=== PATIENT | male | born 1945 ===

== ENCOUNTER 2023-06-26 11:34 | Inpatient (IN) | payer MEDICARE, BC ==
[~2023-06-26] VITALS: Ht 182.9 cm; Wt 88.5 kg
[2023-06-26] VITALS (8 sets, daily range): BP systolic 101–129; BP diastolic 60–97
[2023-06-26] MEDS ORDERED: ATOR80 PO (16:50)
[2023-06-26] MEDS ORDERED: ELIQUIS5 M2 PO (16:50)
[2023-06-26] MEDS ORDERED: CARV25 PO (16:51)
[2023-06-26] MEDS ORDERED: VITAMIN D32000 UNI1 PO (16:51)
[2023-06-26] MEDS ORDERED: CLOP75 PO (16:52)
[2023-06-26] MEDS ORDERED: DIGOX250 MCG PO (16:52)
[2023-06-26] MEDS ORDERED: GLIP10 PO (16:53)
[2023-06-26] MEDS ORDERED: GABA300 PO (16:53)
[2023-06-26 16:55] LABS: BASOPHILS ABSOLUTE AUTO 0.02 K/mm3 (0.00-0.23); BASOPHILS PERCENT AUTO 0 % (0-2); EOSINOPHILS ABSOLUTE AUTO 0.01 K/mm3 (0.00-0.68); EOSINOPHILS PERCENT AUTO 0 % (0-6); Hemoglobin 12.8 g/dL (13.5-17.5); IMMATURE GRAN ABSOLUTE AUTO 0.02 K/mm3 (0.00-0.10); IMMATURE GRAN PERCENT AUTO 0 % (0-1); LYMPHOCYTES ABSOLUTE AUTO 1.07 K/mm3 (0.84-5.20); LYMPHOCYTES PERCENT AUTO 17 % (21-46); MONOCYTES ABSOLUTE AUTO 1.27 K/mm3 (0.16-1.47); MONOCYTES PERCENT AUTO 20 % (4-13); Magnesium, Blood 2.4 mg/dL (1.6-2.4); Mean Corpuscular HGB 27.4 pg (26.0-34.0); Mean Corpuscular HGB Conc 31.2 g/dL (31.5-36.5); Mean Corpuscular Volume 88 fL (80-100); NEUTROPHILS ABSOLUTE AUTO 4.02 K/mm3 (1.96-9.15); NEUTROPHILS PERCENT AUTO 63 % (41-73); RDW Coefficient Variation 16.8 % (11.7-14.2); RDW Standard Deviation 53.2 fL (35.1-46.3); Red Blood Cell Count 4.67 M/mm3 (4.30-5.90); White Blood Cell Count 6.41 K/mm3 (4.00-11.30)
[2023-06-26] MEDS ORDERED: HYDR1TAB94 PO (16:55)
[2023-06-26] MEDS ORDERED: JARDIANCE10 MG PO (16:56)
[2023-06-26] MEDS ORDERED: INSULANI SC (16:57)
[2023-06-26] MEDS ORDERED: EUTHYROX125 MCG PO (16:58)
[2023-06-26] MEDS ORDERED: VICTOZA 3-0.6 MG/0.2 SC (16:59)
[2023-06-26] MEDS ORDERED: LOSA25 PO (17:00)
[2023-06-26] MEDS ORDERED: MAGNESIUM OXID500 MG PO (17:00)
[2023-06-26] MEDS ORDERED: METF500 PO (17:01)
[2023-06-26] MEDS ORDERED: CENTRUM SILVER1 EAC2 PO (17:01)
[2023-06-26 17:02] LABS: Albumin, Blood 3.2 g/dL (3.4-5.0); Albumin/Globulin Ratio 0.9 (0.8-1.8); Bilirubin, Total 0.4 mg/dL (0.1-1.0); Bun/Creatinine Ratio 12.2 (12.0-20.0); Calcium, Blood 8.2 mg/dL (8.5-10.1); Creatinine, Blood 1.23 mg/dL (0.60-1.20); Globulin, Blood 3.6 g/dL (2.2-4.0); Phosphorus, Blood 2.8 mg/dL (2.5-4.9); Potassium, Blood 4.4 mmol/L (3.5-5.5); Thyroid Stimulating Hormone 0.457 uIU/mL (0.360-4.800); Total Protein, Blood 6.8 g/dL (6.4-8.2)
[2023-06-26] MEDS ORDERED: NITR.4SL SL (17:02)
[2023-06-26] MEDS ORDERED: OMEP20ER PO (17:02)
[2023-06-26] MEDS ORDERED: TORS10 PO (17:04)
--- NOTE | 2023-06-26 18:30 | NUR ---
PT ARRIVED IN THE ROOM VIA GURNEY PT WAS TRANSFERRED VIA SLIDE SHEET. PT IS HERE FOR TACHY SYNDROME. PT HAS PACEMAKER/AICD RATE HAS BEEN ELEVATED UP TO 170'S WITH RUNS OF NON SUSTAINING VTACH PT MOSTLY NON SYMPTAMOTIC BUT HAS EPISODES OF LIGHTHEADEDNESS. SBP 110-120'S, SATS ABOVE 95% ON RA, AFEBRILE. PT ALERT AND ORIENTED X2-3, FORGETFUL, SOME CONFUSION, PT CAN ANSWER QUESTIONS, SLOW TO RESPOND. PT WAS PLACED ON A 1;1 SITTER PT STARTING TO PULL ON LINES AND TUBINGS. FAMILY AT THE BEDSIDE AT THIS TIME. DIET RESUMED PT REFUSED DINNER TRAY. DR DE JESUS IN THE AT THIS TIME TALKING TO FAMILY AND THE PT. PT STARTED ON PO METOPROLOL AND AMIODARONE, HRR NOW MOSLTY PACED 70-80'S TACHS UP TO 130'S-150'S OCCASIONALLY. PT IN BED RESTING COMFORTABLY, BED ALARM ON FOR SAFETY. CALL LIGHTS IN REACH WILL REPORT TO ONCOMING SHIFT
[2023-06-26 19:14] LABS: Digoxin (Lanoxin) 0.68 ug/mL (0.80-2.00)
[2023-06-27] VITALS (9 sets, daily range): BP systolic 96–126; BP diastolic 55–72
[2023-06-27 04:05] LABS: BASOPHILS ABSOLUTE AUTO 0.04 K/mm3 (0.00-0.23); BASOPHILS PERCENT AUTO 1 % (0-2); EOSINOPHILS ABSOLUTE AUTO 0.01 K/mm3 (0.00-0.68); EOSINOPHILS PERCENT AUTO 0 % (0-6); Hematocrit 36.7 % (37.0-53.0); Hemoglobin 11.5 g/dL (13.5-17.5); IMMATURE GRAN ABSOLUTE AUTO 0.01 K/mm3 (0.00-0.10); IMMATURE GRAN PERCENT AUTO 0 % (0-1); LYMPHOCYTES ABSOLUTE AUTO 1.36 K/mm3 (0.84-5.20); LYMPHOCYTES PERCENT AUTO 23 % (21-46); MONOCYTES ABSOLUTE AUTO 1.23 K/mm3 (0.16-1.47); MONOCYTES PERCENT AUTO 21 % (4-13); Mean Corpuscular HGB 26.8 pg (26.0-34.0); Mean Corpuscular HGB Conc 31.3 g/dL (31.5-36.5); Mean Corpuscular Volume 86 fL (80-100); Mean Platelet Volume 10.3 fL (9.1-12.4); NEUTROPHILS ABSOLUTE AUTO 3.19 K/mm3 (1.96-9.15); NEUTROPHILS PERCENT AUTO 55 % (41-73); Platelet Count 137 K/mm3 (150-400); RDW Coefficient Variation 16.6 % (11.7-14.2); RDW Standard Deviation 51.9 fL (35.1-46.3); Red Blood Cell Count 4.29 M/mm3 (4.30-5.90); White Blood Cell Count 5.84 K/mm3 (4.00-11.30)
[2023-06-27 04:38] LABS: Albumin, Blood 3.1 g/dL (3.4-5.0); Bilirubin, Total 0.5 mg/dL (0.1-1.0); Bun/Creatinine Ratio 13.9 (12.0-20.0); Calcium, Blood 8.2 mg/dL (8.5-10.1); Creatinine, Blood 1.15 mg/dL (0.60-1.20); Globulin, Blood 3.1 g/dL (2.2-4.0); Magnesium, Blood 2.6 mg/dL (1.6-2.4); Phosphorus, Blood 3.2 mg/dL (2.5-4.9); Total Protein, Blood 6.2 g/dL (6.4-8.2)
--- NOTE | 2023-06-27 06:46 | NUR ---
SHIFT SUMMARY A/Ox2-3 AND MOSTLY COOPERATIVE WITH CARE. CONTINUES TO DEMONSTRATE INTERMITTENT CONFUSION WELL IMPULSIVENESS. PT FREQUENTLY WOULD ATTEMPT TO PULL OFF TELEMETRY WIRES WELL NECESSARY CORDS/IV'S. 1:1 SITTER UTILIZED T/O THE NIGHT TO HELP PROMOTE PT SAFETY. CARDIAC, CONTINUES TO ALTERNATE BETWEEN PACED AND AFIB RHYTHM RANGING 60-110 S. INTERMITTENT RUNS OF V-TACH WITH THE LONGEST SUSTAINING ~48 BEATS WITH A RATE TOUCHING INTO THE 170-180'S. PT ENDORSE INTERMITTENT LIGHT HEADEDNESS DURING SOME OF THESE EVENTS BUT DENIES CP, PRESSURE, OR PALPITATIONS. SBP HAS REMAINED STABLE HOWEVER RANGING 90-120'S. RESPIRATORY, MAINTAINS SPO2 >92% ON RA WITH NO REPORTS OF SOB OR DYSPNEA. GI/, [place] [facility] [place] USE URINAL AT BEDSIDE. NO BM FOR THIS SHIFT. PT SCHEDULED FOR PACEMAKER INTERROGATION IN THE AM. ASSESSED PT FOR RISKS OF ANY IGNITION SOURCES WELL BEHAVIORS FOR INCREASED RISKS OF FIRE DANGER. PT EDUCATED ON COMMON SOURCES OF IGNITION WELL NEED TO KEEP A SAFE ENVIRONMENT. PT VOICED UNDERSTANDING. NO NEW ORDERS AT THIS TIME, WILL REPORT TO ONCOMING RN. LAYNE OF THIS NOTE
--- NOTE | 2023-06-27 11:06 | NUR ---
ASSUMPTION OF CARE ASSUMED CARE AT APPROX 0700. PT AOX2-3. RCVD IN REPORT THAT PT CAN BE IMPULSIVE AT TIMES, PULLING AT LINES AND CORDS. CLINICAL SITTER AT BEDSIDE. IS COOPERATIVE W/ CARE AT THIS TIME. VSS. TELEMETRY SHOWING AFIB VTACH PACED 110'S-120'S. PT W/ EPISODES OF VTACH, NONSUSTAINING. ONE EPISODE AT APPROX 1055 THIS MORNING. RATE INCREASE TO 180'S, STEADILY DECREASED. PT ASYMPTOMATIC DURING EPISODE. CARDIOLOGY ON BOARD. PO AMIODARONE AND INCREASED DOSE OF METOPROLOL ADMINISTERED PER EMAR. PT ON BASELINE ROOM AIR, SATS >92%. PT REPORTING BILATERAL FOOT PAIN, MILD NUMBNESS AND TINGLING RELATED TO NEUROPATHY. 1P ASSIST IN ROOM. CALL LIGHT IN REACH, SITTER AT BEDSIDE.
--- NOTE | 2023-06-27 18:02 | NUR ---
SHIFT SUMMARY NO ACUTE CHANGES SINCE ASSUMPTION OF CARE NOTE. MENTATION HAS IMPROVED THIS SHIFT. PT AOX2-3. NO LONGER PULLING AT CORDS AND DEVICES. SITTER AND FAMILY AT BEDSIDE THROUGHOUT SHIFT. COOPERATIVE W/ CARE THROUGHOUT. VSS. HR IMPROVED. TELEMETRY CURRENTLY SHOWING PACED AT 80. PACER INTERROGATION PERFORMED THIS AFTERNOON, MD AWARE OF FINDINGS. CONTINUED INTERMITTENT EPISODES OF SVT, NO LONGER CONSIDERED VTACH PER INTERROGATION. PT REPORTED DIZZINESS DURING SOME EPISODES. ECHO PERFORMED THIS MORNING. PT REMAINED ON ROOM AIR, SATS >90%. IS A 1P ASSIST IN ROOM. VOIDING. X2 BM'S THIS SHIFT. CALL LIGHT IN REACH. PT CURRENTLY RESTING IN ROOM. CALL LIGHT IN REACH. WILL REPORT TO ONCOMING RN.
[2023-06-28 00:52] VITALS: BP 122/73
[2023-06-28 04:53] VITALS: BP 127/72
--- NOTE | 2023-06-28 06:26 | NUR ---
SHIFT SUMMARY A/Ox2-4 AND MOSTLY COOPERATIVE WITH CARE. CONTINUES TO DEMONSTRATE INTERMITTENT CONFUSION WELL IMPULSIVENESS, BUT HAS IMPROVED SINCE PREVIOUS NOC SHIFT. 1:1 SITTER UTILIZED UNTIL ~0140 THI AM TO HELP PROMOTE PT SAFETY. BED ALARM IMPLACE. CARDIAC, CONTINUES TO ALTERNATE BETWEEN PACED AND AFIB RHYTHM RANGING 60-110'S. DECREASE RUNS OF SVT NOTED DURING THE NIGHT WHEN COMPARED TO PREVIOUS NOC SHIFT. PT CONTINUES TO RECEIVE RATE CONTROL MEDICATIONS PER EMAR. PT NO DENIES ANY LIGHT HEADEDNESS DURING THE NIGHT. DENIES CP, PRESSURE, OR PALPITATIONS. SBP HAS REMAINED STABLE HOWEVER RANGING IN THE 120'S. RESPIRATORY, MAINTAINS SPO2 >94% ON RA WITH NO REPORTS OF SOB OR DYSPNEA. GI/, ABLE TO TRANSFER TO [facility] VIA 1 ASSIST OR USE URINAL AT BEDSIDE. INTERMITTENT EPISODES OF CONFUSION WITH INCONTINENCE DURING THE NIGHT. NO BM FOR THIS SHIFT. ASSESSED PT FOR RISKS OF ANY IGNITION SOURCES WELL BEHAVIORS FOR INCREASED RISKS OF FIRE DANGER. PT EDUCATED ON COMMON SOURCES OF IGNITION WELL NEED TO KEEP A SAFE ENVIRONMENT. PT VOICED UNDERSTANDING. NO NEW ORDERS AT THIS TIME, WILL REPORT TO ONCMARQUES LAYNE OF THIS NOTE
[2023-06-28 08:02] LABS: Magnesium, Blood 2.2 mg/dL (1.6-2.4)
[2023-06-28 08:03] LABS: Albumin, Blood 3.2 g/dL (3.4-5.0); Albumin/Globulin Ratio 0.9 (0.8-1.8); Bilirubin, Total 0.5 mg/dL (0.1-1.0); Bun/Creatinine Ratio 16.5 (12.0-20.0); Calcium, Blood 8.3 mg/dL (8.5-10.1); Creatinine, Blood 1.33 mg/dL (0.60-1.20); Globulin, Blood 3.6 g/dL (2.2-4.0); Potassium, Blood 4.1 mmol/L (3.5-5.5); Total Protein, Blood 6.8 g/dL (6.4-8.2)
[2023-06-28 08:04] LABS: BASOPHILS ABSOLUTE AUTO 0.03 K/mm3 (0.00-0.23); BASOPHILS PERCENT AUTO 1 % (0-2); EOSINOPHILS PERCENT AUTO 2 % (0-6); Hematocrit 39.9 % (37.0-53.0); Hemoglobin 12.4 g/dL (13.5-17.5); IMMATURE GRAN ABSOLUTE AUTO 0.01 K/mm3 (0.00-0.10); IMMATURE GRAN PERCENT AUTO 0 % (0-1); LYMPHOCYTES ABSOLUTE AUTO 1.43 K/mm3 (0.84-5.20); LYMPHOCYTES PERCENT AUTO 27 % (21-46); MONOCYTES ABSOLUTE AUTO 0.71 K/mm3 (0.16-1.47); MONOCYTES PERCENT AUTO 13 % (4-13); Mean Corpuscular HGB 27.1 pg (26.0-34.0); Mean Corpuscular HGB Conc 31.1 g/dL (31.5-36.5); Mean Corpuscular Volume 87 fL (80-100); Mean Platelet Volume 10.1 fL (9.1-12.4); NEUTROPHILS ABSOLUTE AUTO 3.02 K/mm3 (1.96-9.15); NEUTROPHILS PERCENT AUTO 57 % (41-73); Platelet Count 159 K/mm3 (150-400); RDW Coefficient Variation 16.5 % (11.7-14.2); RDW Standard Deviation 52.8 fL (35.1-46.3); Red Blood Cell Count 4.58 M/mm3 (4.30-5.90)
[2023-06-28 08:15] VITALS: BP 121/58
--- NOTE | 2023-06-28 11:11 | NUR ---
ASSUMPTION OF CARE ASSUMED CARE AT APPROX 0700. PT AOX2-3. MENTATION SEEMS TO BE IMPROVING. UNABLE TO TELL ME HIS CURRENT LOCATION BUT ABLE TO REPORT NAME/DATE OF , PRESIDENT, AND CURRENT HEALTH SITUATION. FORGETFUL, BED ALARM IN PLACE AND FAMILY AT BEDSIDE. VSS. TELEMETRY SHOWING PACED AFIB 80'S. NO EPISODES OF SVT THIS MORNING. BP STABLE. REMAINS ON ROOM AIR, SATS >90%. 1P ASSIST IN ROOM. VOIDING. CALL LIGHT IN REACH.
[2023-06-28 11:27] VITALS: BP 118/72
--- NOTE | 2023-06-28 11:54 | NUR ---
UPDATE AFTER SPEAKING W/ SON OVER THE PHONE, PT HAS CHOSEN TO CONTINUE W/ [facility] TRANSFER FOR FURTHER TREATMENT. DISCUSSED CODE STATUS FURTHER. SUSAN RN NOTIFIED PALLATIVE CARE REGARDING DECISION.
[2023-06-28 16:28] VITALS: BP 123/78
--- NOTE | 2023-06-28 16:43 | NUR ---
SHIFT SUMMARY NO ACUTE CHANGES SINCE ASSUMPTION OF CARE. MD TO BEDSIDE FOR ROUNDING. RCVD ORDER FOR STATUS CHANGE, NOW MEDICAL W/ TELE. POSSIBLE DISCHARGE HOME. VS REMAINED STABLE. TELEMETRY SHOWING AFIB PACED 80'S. NO EPISODES OF SVT THIS SHIFT. REMAINS ON ROOM AIR, SATS >90%. WORKED W/ PHYSICAL AND OCCUPATIONAL THERAPY TODAY. UP W/ SBA TO RESTROOM W/ FWW. TOLERATING PO INTAKE. VOIDING. MULTIPLE BM's THIS SHIFT. FAMILY AT BEDSIDE THROUGHOUT SHIFT, RECEPTIVE TO EDUCATION AND ASK FREQUENT QUESTIONS. BEDBATH PERFORMED. IS CURRENTLY SITTING IN RECLINER CHAIR. CALL LIGHT IN REACH. WILL REPORT TO ONCOMING RN.
[2023-06-28 20:56] VITALS: BP 137/77
[2023-06-29 04:26] VITALS: BP 139/78
--- NOTE | 2023-06-29 06:49 | NUR ---
SHIFT SUMMARY PATIENT ALERT AND ORIENTED X3-4, CAN BE CONFUSED AND FORGETFUL AT TIMES. PATIENT DENIES CHEST PAIN OR SHORTNESS OF BREATH. ON ROOM AIR WITH SPO2 IN HIGH 90'S. VITAL SIGNS STABLE, PACED ON TELE. NO ACUTE ISSUES NOTED OVERNIGHT. WILL CONTINUE TO MONITOR. CALL LIGHT WITHIN REACH.
[2023-06-29 07:56] VITALS: BP 135/85
[2023-06-29] MEDS ORDERED: Amiodarone HCl200 MG PO (09:00)
[2023-06-29] MEDS ORDERED: METO100ER PO (09:00)
--- NOTE | 2023-06-29 11:56 | NUR ---
D/C SUMMARY PT IS BEING D/C'D HOME. HIS SON IS HERE TO PICK HIMUP WITH THE PT'S SPOUSE. DISCHARGE INFORMATION WAS GONE OVER WITH THE PT AND HIS FAMILY. THE PT HAS A BEDSIDE COVID TEST BEFORE DISCHARGE AND IT CAME BACK POSITIVE. VITAL SIGNS ARE STABLE AND THE PT HAS NO COMPLAINTS. IV'S WERE D/C'D BY THE NIGHTMAN AND ALL BELONGINGS WERE SENT WITH THE PT. NO QUESTIONS AT THE TIME OF DISCHARGE.
== END 2023-06-29 11:16 | disposition home or self-care (01) | DRG 308 ==
LOC: PCU 11:34
PROVIDERS: Family Medicine; Hospitalist; Internal Medicine; Internal Medicine Cardiovascular Disease; ADMIT Internal Medicine
DX: I47.20 Ventricular tachycardia, unspecified (principal); U07.1 COVID-19; I42.9 Cardiomyopathy, unspecified; G93.40 Encephalopathy, unspecified; I48.0 Paroxysmal atrial fibrillation; I25.10 Atherosclerotic heart disease of native coronary artery without angina pectoris; I48.92 Unspecified atrial flutter; E78.5 Hyperlipidemia, unspecified; I10 Essential (primary) hypertension; E11.42 Type 2 diabetes mellitus with diabetic polyneuropathy; F17.210 Nicotine dependence, cigarettes, uncomplicated; Z66 Do not resuscitate; G31.84 Mild cognitive impairment of uncertain or unknown etiology; E83.42 Hypomagnesemia; R77.8 Other specified abnormalities of plasma proteins; E03.9 Hypothyroidism, unspecified; M54.50 Low back pain, unspecified; D69.6 Thrombocytopenia, unspecified; G89.29 Other chronic pain; Z95.5 Presence of coronary angioplasty implant and graft; Z95.810 Presence of automatic (implantable) cardiac defibrillator
CPT/HCPCS: 36415; 80053; 80162; 82947; 83735; 84100; 84443; 84484; 85025; 87426; 87811; 93283; 97110; 97116; 97161; 97165; 97530; 97535; A9270; C8929; C9113; J1815; Q9957